=== PATIENT | female | born 1960 | race Caucasian/White ===

== ENCOUNTER 2016-10-26 05:06 | Inpatient (IN) | payer OTHER ==
[2016-10-26 05:18] VITALS: BMI 25.6
--- NOTE | 2016-10-26 05:19 | PDOC ---
History of Present Illness - General Chief Complaint: Altered Mental Status Stated Complaint: WEAKNESS Time Seen by Provider: 10/26/16 05:18 History Source: Patient - History of Present Illness Initial Comments: 10/26/16 05:40 Chief complaint: Altered mental status Patient is a 56-year-old female with a history of diabetes, coronary artery disease, hypertension who states she was fine yesterday, is not sure what happened and found her and paramedics standing over her. EMS states that the states that she altered mental status and he called the ambulance. Patient's only complaint now she is a little tired. No chest pain or shortness of breath. No history of seizures. Blood sugar by EMS was about 170 GENERAL/CONSTITUTIONAL: No fever, +weakness. No: dizziness HEAD, EYES, EARS, NOSE AND THROAT: No change in vision. No ear pain or discharge. No sore throat. CARDIOVASCULAR: No chest pain RESPIRATORY: No shortness of breath or cough GASTROINTESTINAL: No pain, nausea, vomiting, diarrhea or constipation GENITOURINARY: No dysuria MUSCULOSKELETAL: No neck or back pain SKIN: No rash NEUROLOGIC: No headache, vertigo, loss of consciousness, or loss of sensation. GENERAL: The patient is awake, alert, and fully oriented, in no acute distress. HEAD: Normal with no signs of trauma. EYES: Pupils equal, round and reactive to light, sclera anicteric, conjunctiva clear. EOMs intact ENT: pharynx: no erythema, no exudate, uvula midline NECK: supple CHEST: clear, nontender, rr ABD: soft, nontender EXTREMITIES: Normal range of motion, no edema. Strength 5 out of 5 upper and lower extremities bilaterally, neurovascular intact NEUROLOGICAL: Normal speech, cranial nerves II through XII grossly intact SKIN: Warm, Dry Past History - Past Medical History Allergies/Adverse Reactions: Allergies Allergy/AdvReac Type Severity Reaction Status Date / Time No Known Allergies Allergy Verified 10/26/16 05:14 Home Medications: Ambulatory Orders Amlodipine Besylate [Norvasc -] 0 mg PO DAILY 10/26/16 Aspirin [ASA -] 81 mg PO DAILY 10/26/16 Gemfibrozil 0 gm PO ASDIR 10/26/16 Insulin (Novolog) [Novolog] 0 units SQ ASDIR 10/26/16 Losartan Potassium 0 mg PO DAILY 10/26/16 Metoprolol Tartrate 0 mg PO ASDIR 10/26/16 Diabetes: Yes HTN: Yes - Psycho/Social/Smoking Cessation Hx Suicidal Ideation: No Smoking History: Never smoked Hx Alcohol Use: No Drug/Substance Use Hx: No *Physical Exam - Vital Signs Last Vital Signs Temp Pulse Resp BP Pulse Ox 97.9 F 70 18 118/64 94 L 10/26/16 05:14 10/26/16 05:14 10/26/16 05:14 10/26/16 05:14 10/26/16 05:14 Heart Score/ECG Review - ECG Intrepretation Rhythm: Regular Rhythm Comment:: 10/26/16 05:48 Normal sinus rhythm, nonspecific ST abnormality, at 88 ED Treatment Course - LABORATORY CBC & Chemistry Diagram: 10/26/16 05:30 10/26/16 05:30 Medical Decision Making - Medical Decision Making 10/26/16 05:46 56-year-old female with a history of hypertension, CAD, diabetes who had some kind of episode at home where she was altered and does not know what happened. Given her history, we'll get labs, head CT, EKG patient will need to stay to be monitored, observation even if workup is negative 10/26/16 06:[address]: no acute findings chest xray: no infiltrate or failure *DC/Admit/Observation/Transfer Diagnosis at time of Disposition: Altered mental status Qualifiers: Altered mental status type: unspecified Qualified Code(s): R41.82 - Altered mental status, unspecified
--- NOTE | 2016-10-26 05:29 | PDOC ---
[id number] 96 10/26/16 05:14 10/26/16 05:14 10/26/16 05:14 10/26/16 05:14 10/26/16 05:14 ED Treatment Course - LABORATORY CBC & Chemistry Diagram: 10/26/16 05:30 10/26/16 05:30 Medical Decision Making - Medical Decision Making 10/26/16 05:28 agree with care from LYNN Waterman *DC/Admit/Observation/Transfer Diagnosis at time of Disposition: Altered mental status
[2016-10-26 05:43] LABS: MCHC 35.5 g/dl (32.0-36.0); MEAN CELL VOLUME 87.2 fl (80-96); MEAN PLT VOLUME 8.4 fl (7.5-11.1); PLATELET COUNT 328 K/MM3 (134-434); RDW 12.4 % (11.6-15.6); WHITE BLOOD COUNT 8.5 K/mm3 (4.0-10.0)
[2016-10-26 06:23] LABS: ALBUMIN 4.2 g/dl (3.4-5.0); ANION GAP 12 (8-16); BILIRUBIN,TOTAL 0.2 mg/dL (0.2-1.0); CALCIUM 8.6 mg/dL (8.5-10.1); CO2 24 mmol/L (21-32); GLUCOSE,RANDOM 187 mg/dL (74-106); SGPT/ALT 32 U/L (12-78); TOT PROT 8.1 g/dl (6.4-8.2)
[2016-10-26 06:26] LABS: ALK PHOS 72 U/L (45-117); TROPONIN I < 0.02 ng/ml (0.00-0.05)
[2016-10-26 06:35] LABS: SGOT/AST 21 U/L (15-37)
--- NOTE | 2016-10-26 08:25 | PDOC ---
*Physical Exam - Vital Signs Last Vital Signs Temp Pulse Resp BP Pulse Ox 97.7 F 92 H 15 110/72 97 10/26/16 07:31 10/26/16 07:31 10/26/16 07:31 10/26/16 07:31 10/26/16 07:31 ED Treatment Course - LABORATORY CBC & Chemistry Diagram: 10/26/16 05:30 10/26/16 05:30 - ADDITIONAL ORDERS Additional order review: Laboratory Results 10/26/16 05:30 Sodium 137 Potassium 4.0 Chloride 101 Carbon Dioxide 24 Anion Gap 12 BUN 23 H Creatinine 1.0 Creat Clearance w eGFR 57.35 Random Glucose 187 H Calcium 8.6 Total Bilirubin 0.2 AST 21 ALT 32 Alkaline Phosphatase 72 Creatine Kinase 119 Troponin I < 0.02 Total Protein 8.1 Albumin 4.2 10/26/16 05:30 RBC 4.09 MCV 87.2 MCHC 35.5 RDW 12.4 MPV 8.4 Neutrophils % 34.0 L Lymphocytes % 57.0 H Monocytes % 7.0 Eosinophils % 2.0 Medical Decision Making - Medical Decision Making 10/26/16 08:02 Patient received in sign out from LYNN Waterman. Patient with a period of confusion last night as per and unable to recall the events leading up to EMS at her bedside. Patient currently asymptomatic but does have history of diabetes and had a normal BGM on scene. Patient ordered for head CT which was negative and labs which were otherwise normal. Awaiting callback from patient's PCP to discuss disposition of observation and neuro consultation Selected Entries 10/26/16 07:31 Temperature 97.7 F Pulse Rate [ 92 H Apical] Respiratory 15 Rate Blood Pressure 110/72 [Left Arm] O2 Sat by Pulse 97 Oximetry (%) 10/26/16 08:[address] Ziegler who states to consult cardiology and neuro and admit to telemetry observation. 10/26/16 09:[address] Chung and will consult on pt. Call also placed to Dr. Latham. Dr. Ziegler here for consultation and states pt should be upgraded to inpatient as she feels this may be cardiac event since while checking her pulse she felt to be irregular and with occasional pauses. *DC/Admit/Observation/Transfer Diagnosis at time of Disposition: Altered mental status Qualifiers: Altered mental status type: unspecified Qualified Code(s): R41.82 - Altered mental status, unspecified - Discharge Dispostion Admit: Yes
[2016-10-26 08:49] LABS: URINE APPEARANCE CLEAR; URINE BILIRUBIN NEGATIVE (NEGATIVE); URINE BLOOD NEGATIVE (NEGATIVE); URINE COLOR STRAW; URINE GLUCOSE (UA) NEGATIVE (NEGATIVE); URINE KETONE NEGATIVE (NEGATIVE); URINE LEUK ESTERASE NEGATIVE (NEGATIVE); URINE NITRITE NEGATIVE (NEGATIVE); URINE UROBILINOGEN NEGATIVE E.U./dl (0.2-1.0)
[2016-10-26 08:57] LABS: URINE PROTEIN 1+ (NEGATIVE)
[2016-10-26 08:59] LABS: URINE MUCUS RARE; URINE WBC <1 /hpf (3-5)
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
--- NOTE | 2016-10-26 14:14 | EKG ---
Test Reason : Blood Pressure : / mmHG Vent. Rate : 088 BPM Atrial Rate : 088 BPM P-R Int : 164 ms QRS Dur : 088 ms QT Int : 382 ms P-R-T Axes : 062 028 048 degrees QTc Int : 462 ms NORMAL SINUS RHYTHM NONSPECIFIC ST ABNORMALITY ABNORMAL ECG NO PREVIOUS ECGS AVAILABLE Confirmed by HELEN REYNA, MAYI ([id number]) on 10/26/2016 2:13:56 PM Referred By: Confirmed By:MAYI CERVANTES MD
[2016-10-26] MEDS ORDERED: HEPARIN NA (PORCINE) 5,000 UNITS/ML 1ML VIAL SQ ONE (18:11)
--- NOTE | 2016-10-26 19:55 | CON.NEURO ---
[id number]:: sudden unresponsiveness, altered mental status, confusion , amnesia - History of Present Illness History of Present Illness: 56-year-old female with a pmh. of diabetes, coronary artery disease, hypertension who states she was fine yesterday was admitted for sudden altered mental status, unresponsiveness. Last night she took her DM meds and went to sleep . Her usually is coming late from his job and when he checked on her she was not arousable for few minutes . He called the ambulance. Till EMS arrived however the patient woke up, confused and asking repeatedly " what happened". Today she is back to normal and she has no memory of the event. . Patient's only complaint now she is a little tired. No chest pain or shortness of breath. No history of seizures. Blood sugar by EMS was about 170 - Past Medical History Cardio/Vascular: Yes: HTN, Hyperlipdemia, Mitral Stenosis Endocrine: Yes: Diabetes Mellitus - Alcohol/Substance Use Hx Alcohol Use: No - Smoking History Smoking history: Never smoked Home Medications - Allergies Allergies/Adverse Reactions: Allergies Allergy/AdvReac Type Severity Reaction Status Date / Time No Known Allergies Allergy Verified 10/26/16 05:14 - Home Medications Home Medications: Ambulatory Orders Amlodipine Besylate [Norvasc -] 0 mg PO DAILY 10/26/16 Aspirin [ASA -] 81 mg PO DAILY 10/26/16 Gemfibrozil 0 gm PO ASDIR 10/26/16 Insulin (Novolog) [Novolog] 0 units SQ ASDIR 10/26/16 Losartan Potassium 0 mg PO DAILY 10/26/16 Metoprolol Tartrate 0 mg PO ASDIR 10/26/16 Review of Systems - Review of Systems Constitutional: reports: No Symptoms, Malaise Eyes: reports: No Symptoms HENT: reports: No Symptoms Neck: reports: No Symptoms Cardiovascular: reports: No Symptoms Respiratory: reports: No Symptoms Gastrointestinal: reports: No Symptoms Genitourinary: reports: No Symptoms Breasts: reports: No Symptoms Reported Musculoskeletal: reports: No Symptoms Integumentary: reports: No Symptoms Neurological: reports: No Symptoms Endocrine: reports: No Symptoms Hematology/Lymphatic: reports: No Symptoms Psychiatric: reports: No Symptoms Physical Exam-Neuro Vital Signs: Vital Signs Temperature 98.0 F 10/26/16 14:14 Pulse Rate 98 H 10/26/16 14:14 Respiratory Rate 16 10/26/16 14:14 Blood Pressure 131/68 10/26/16 14:14 O2 Sat by Pulse Oximetry (%) 97 10/26/16 12:40 Constitutional: Yes: No Distress, Calm, Anxious Neck: Yes: Supple, Trachea Midline Cardiovascular: Yes: WNL, Regular Rate and Rhythm, S1, S2 Respiratory: Yes: WNL, Regular, CTA Bilaterally Gastrointestinal: Yes: WNL, Normal Bowel Sounds, Soft Renal/: Yes: WNL Musculoskeletal: Yes: WNL Edema: No Psychiatric: Yes: Alert, Oriented - Neuro Exam Level Of Consciousness: Yes: Alert, Oriented to Person, Oriented to Place, Oriented to Time Eyes: Yes: PERRLA Speech: WNL Dominant Hand: Right Cranial Nerves II-XII Intact: Yes Gag: Present DTR's: 1+ Left Bicep, 1+ Right Bicep, 1+ Left Tricep, 1+ Right Tricep, 1+ Left Brachioradialis, 1+ Right Brachioradialis, 1+ Left Achilles, 1+ Right Achilles Babinski: Absent Response to light touch: Normal Response to pain prick: Normal Response to temperature: Normal Response to vibration: Normal Coordination: Normal: Finger to Nose, Heel to Vital Motor Strength: 5/5: Left Arm, Right Arm, Left Leg, Right Leg Gait: Deferred Imaging - Results Cat Scan: Report Reviewed, Image Reviewed Problem List - Problems (1) Altered mental status Code(s): R41.82 - ALTERED MENTAL STATUS, UNSPECIFIED Qualifiers: Altered mental status type: unspecified Qualified Code(s): R41.82 - Altered mental status, unspecified (2) Transient global amnesia Code(s): G45.4 - TRANSIENT GLOBAL AMNESIA (3) Seizure Code(s): R56.9 - UNSPECIFIED CONVULSIONS Assessment/Plan 56-year-old female with a pmh. of diabetes, coronary artery disease, hypertension who states she was fine yesterday was admitted for sudden altered mental status, unresponsiveness. Last night she took her DM meds and went to sleep . Her usually is coming late from his job and when he checked on her she was not arousable for few minutes . He called the ambulance. Till EMS arrived however the patient woke up, confused and asking repeatedly " what happened". Today she is back to normal and she has no memory of the event. . No history of seizures. Blood sugar by EMS was about 170 Impression: AMS , metabolic encephslopathy vs seizure vs TIA Plan: - TIA work up : MRI brain, echo, doppler, Holter 24 h. - check for UTI. - DVT prophylaxis - EEG to rule out seizures. -will follow
[2016-10-26] MEDS: METOPROLOL TARTRATE 25 MG TABLET (FP) PO SCH (21:45)
[2016-10-26] MEDS ORDERED: ACETAMINOPHEN 325 MG TABLET (FP) PO PRN (22:03)
[2016-10-27 07:25] LABS: CREATININE 0.8 mg/dL (0.55-1.02)
[2016-10-27 08:26] LABS: BASOPHIL 0.8 % (0-2.0); EOSINOPHIL 3.9 % (0-4.5); MCH 31.5 pg (25.7-33.7); MEAN CELL VOLUME 85.2 fl (80-96); MEAN PLT VOLUME 8.9 fl (7.5-11.1); NEUTROPHILS 28.3 % (42.8-82.8); RDW 12.2 % (11.6-15.6); WHITE BLOOD COUNT 8.4 K/mm3 (4.0-10.0)
[2016-10-27] MEDS: amLODIPine BESYLATE 10 MG TABLET (FP) PO SCH (09:18)
[2016-10-27] MEDS: ASPIRIN 325 MG TABLET PO SCH (09:18)
[2016-10-27] MEDS: METOPROLOL TARTRATE 25 MG TABLET (FP) PO SCH ×2 (09:18→20:59)
[2016-10-27 09:46] LABS: PLATELET COUNT 298 K/MM3 (134-434)
--- NOTE | 2016-10-27 10:47 | EKG ---
Test Reason : Blood Pressure : / mmHG Vent. Rate : 090 BPM Atrial Rate : 090 BPM P-R Int : 144 ms QRS Dur : 088 ms QT Int : 382 ms P-R-T Axes : 061 045 031 degrees QTc Int : 467 ms NORMAL SINUS RHYTHM MINIMAL VOLTAGE CRITERIA FOR LVH, MAY BE NORMAL VARIANT NONSPECIFIC ST ABNORMALITY ABNORMAL ECG WHEN COMPARED WITH ECG OF 26-OCT-2016 05:41, NO SIGNIFICANT CHANGE WAS FOUND Confirmed by PAOLO FINCH MD ([id number]) on 10/27/2016 10:47:16 AM Referred By: SAMIA FRENCH Confirmed By:PAOLO FINCH MD
--- NOTE | 2016-10-27 11:11 | HP ---
Admitting History and Physical - Admission Chief Complaint: I cant remeber History of Present Illness: Patient is a 56-year-old female with a history of diabetes, coronary artery disease, hypertension who states she was fine yesterday, is not sure what happened and found her and paramedics standing over her. EMS states that the states that she altered mental status and he called the ambulance. Patient's only complaint now she is a little tired. No chest pain or shortness of breath. No history of seizures. Blood sugar by EMS was about 170 History Source: Patient, Family Member, Medical Record Limitations to Obtaining History: No Limitations, Other (unable to remeber event s) - Past Medical History Cardiovascular: Yes: HTN, Hyperlipdemia, Mitral Stenosis Endocrine: Yes: Diabetes Mellitus - Smoking History Smoking history: Never smoked - Alcohol/Substance Use Hx Alcohol Use: No - Social History Usual Living Arrangement: Yes: With Spouse Home Medications - Allergies Allergies/Adverse Reactions: Allergies Allergy/AdvReac Type Severity Reaction Status Date / Time No Known Allergies Allergy Verified 10/26/16 05:14 - Home Medications Home Medications: Ambulatory Orders Amlodipine Besylate [Norvasc -] 0 mg PO DAILY 10/26/16 Aspirin [ASA -] 81 mg PO DAILY 10/26/16 Gemfibrozil 0 gm PO ASDIR 10/26/16 Insulin (Novolog) [Novolog] 0 units SQ ASDIR 10/26/16 Losartan Potassium 0 mg PO DAILY 10/26/16 Metoprolol Tartrate 0 mg PO ASDIR 10/26/16 Review of Systems - Review of Systems Constitutional: reports: No Symptoms Eyes: reports: No Symptoms HENT: reports: No Symptoms Neck: reports: No Symptoms Cardiovascular: reports: No Symptoms Respiratory: reports: No Symptoms Gastrointestinal: reports: No Symptoms Genitourinary: reports: No Symptoms Breasts: reports: No Symptoms Reported Musculoskeletal: reports: No Symptoms Integumentary: reports: No Symptoms Neurological: reports: Confusion Endocrine: reports: No Symptoms Hematology/Lymphatic: reports: No Symptoms Psychiatric: reports: No Symptoms Physical Examination Vital Signs: Vital Signs Temperature 98.2 F 10/27/16 10:00 Pulse Rate 89 10/27/16 10:00 Respiratory Rate 20 10/27/16 10:00 Blood Pressure 118/79 10/27/16 10:00 O2 Sat by Pulse Oximetry (%) 94 L 10/27/16 09:00 Constitutional: Yes: Well Nourished, No Distress Eyes: Yes: WNL, Conjunctiva Clear, EOM Intact HENT: Yes: WNL, Atraumatic, Normocephalic Neck: Yes: WNL, Supple, Trachea Midline Cardiovascular: Yes: WNL, Regular Rate and Rhythm Respiratory: Yes: WNL, Regular Gastrointestinal: Yes: WNL, Normal Bowel Sounds, Soft Renal/: Yes: WNL Breast(s): Yes: WNL Musculoskeletal: Yes: WNL Extremities: Yes: WNL Edema: No Peripheral Pulses: Left Radial: 2+, Right Radial: 2+, Left Doralis Pedis: 2+, Right Dorsalis Pedis: 2+, Left Femoral: 2+, Right Femoral: 2+ Integumentary: Yes: WNL Neurological: Yes: WNL, Alert, Oriented, Cran Nerves II-XII Intact ...Motor Strength: WNL Psychiatric: Yes: WNL Labs: CBC, BMP 10/27/16 06:00 10/27/16 06:00 Problem List - Problems (1) Altered mental status Code(s): R41.82 - ALTERED MENTAL STATUS, UNSPECIFIED Qualifiers: Altered mental status type: unspecified Qualified Code(s): R41.82 - Altered mental status, unspecified (2) Transient global amnesia Code(s): G45.4 - TRANSIENT GLOBAL AMNESIA (3) Diabetes mellitus Code(s): E11.9 - TYPE 2 DIABETES MELLITUS WITHOUT COMPLICATIONS (4) CAD (coronary atherosclerotic disease) Code(s): I25.10 - ATHSCL HEART DISEASE OF [place] CORONARY ARTERY W/O ANG PCTRS (5) HTN (hypertension) Code(s): I10 - ESSENTIAL (PRIMARY) HYPERTENSION
--- NOTE | 2016-10-27 11:22 | PN ---
Progress Note (short form) - Note Progress Note: sitting in bed -- ar baseline "what happened to me ?" cannot remember events that prompted Hospitalization wants to go home -- feeling well Vital Signs Period Temp Pulse Resp BP Sys/[place] Pulse Ox Last 24 Hr 97.4 F-98.2 F 72-99 16-20 118-131/68-92 94-97 neck supple heart reg lungs clear bilat abd soft non tender ext no edema / no calf tenderness CBC, BMP 10/27/16 06:00 10/27/16 06:00 Active Medications Acetaminophen (Tylenol -) 650 mg PO Q6H PRN PRN Reason: FEVER OR PAIN Amlodipine Besylate (Norvasc -) 10 mg PO DAILY [facility] Last Admin: 10/27/16 09:18 Dose: 10 mg Aspirin (Asa -) 325 mg PO DAILY [facility] Last Admin: 10/27/16 09:18 Dose: 325 mg Metoprolol Tartrate (Lopressor -) 25 mg PO BID [facility] Last Admin: 10/27/16 09:18 Dose: 25 mg needs to resume insulin -- however considering hypoglycemic even will observe and resume at lower dose Problem List - Problems (1) Altered mental status Code(s): R41.82 - ALTERED MENTAL STATUS, UNSPECIFIED Qualifiers: Altered mental status type: unspecified Qualified Code(s): R41.82 - Altered mental status, unspecified (2) Transient global amnesia Code(s): G45.4 - TRANSIENT GLOBAL AMNESIA (3) Diabetes mellitus Code(s): E11.9 - TYPE 2 DIABETES MELLITUS WITHOUT COMPLICATIONS (4) CAD (coronary atherosclerotic disease) Code(s): I25.10 - ATHSCL HEART DISEASE OF [place] CORONARY ARTERY W/O ANG PCTRS (5) HTN (hypertension) Code(s): I10 - ESSENTIAL (PRIMARY) HYPERTENSION
--- NOTE | 2016-10-27 14:47 | PN ---
Progress Note, Physician History of Present Illness: 56-year-old female with a pmh. of diabetes, coronary artery disease, hypertension who states she was fine yesterday was admitted for sudden altered mental status, unresponsiveness. Last night she took her DM meds and went to sleep . Her usually is coming late from his job and when he checked on her she was not arousable for few minutes . He called the ambulance. Till EMS arrived however the patient woke up, confused and asking repeatedly " what happened". Today she is back to normal and she has no memory of the event. . Patient's only complaint now she is a little tired. No chest pain or shortness of breath. No history of seizures. Blood sugar by EMS was about 170 - Current Medication List Current Medications: Active Medications Acetaminophen (Tylenol -) 650 mg PO Q6H PRN PRN Reason: FEVER OR PAIN Amlodipine Besylate (Norvasc -) 10 mg PO DAILY [facility] Last Admin: 10/27/16 09:18 Dose: 10 mg Aspirin (Asa -) 325 mg PO DAILY [facility] Last Admin: 10/27/16 09:18 Dose: 325 mg Metoprolol Tartrate (Lopressor -) 25 mg PO BID [facility] Last Admin: 10/27/16 09:18 Dose: 25 mg - Objective Vital Signs: Vital Signs Temperature 98.2 F 10/27/16 10:00 Pulse Rate 89 10/27/16 10:00 Respiratory Rate 20 10/27/16 10:00 Blood Pressure 118/79 10/27/16 10:00 O2 Sat by Pulse Oximetry (%) 94 L 10/27/16 09:00 Constitutional: Yes: No Distress, Calm Eyes: Yes: Conjunctiva Clear, EOM Intact HENT: Yes: Atraumatic, Normocephalic Neck: Yes: Supple, Trachea Midline Cardiovascular: Yes: Regular Rate and Rhythm, S1, S2 Respiratory: Yes: Regular, CTA Bilaterally Gastrointestinal: Yes: Normal Bowel Sounds, Soft Genitourinary: Yes: WNL Breast(s): Yes: WNL Musculoskeletal: Yes: WNL Extremities: Yes: WNL Edema: No Peripheral Pulses WNL: Yes Peripheral Pulses: Left Radial: 1+, Right Radial: 1+ Neurological: Yes: WNL, Alert, Oriented, Cran Nerves II-XII Intact ...Motor Strength: WNL Psychiatric: Yes: WNL, Alert, Oriented Labs: CBC, BMP 10/27/16 06:00 10/27/16 06:00 - ....Imaging Ultrasound: Pending, Report Reviewed, Image Reviewed MRI: Pending EKG: Report Reviewed, Image Reviewed Problem List - Problems (1) Altered mental status Code(s): R41.82 - ALTERED MENTAL STATUS, UNSPECIFIED Qualifiers: Altered mental status type: unspecified Qualified Code(s): R41.82 - Altered mental status, unspecified (2) Transient global amnesia Code(s): G45.4 - TRANSIENT GLOBAL AMNESIA (3) Seizure Code(s): R56.9 - UNSPECIFIED CONVULSIONS (4) Syncope Code(s): R55 - SYNCOPE AND COLLAPSE Assessment/Plan 56-year-old female with a pmh. of diabetes, coronary artery disease, hypertension, porcine valve mitral who states she was fine yesterday was admitted for sudden altered mental status, unresponsiveness. Last night she took her DM meds and went to sleep . Her usually is coming late from his job and when he checked on her she was not arousable for few minutes . He called the ambulance. Till EMS arrived however the patient woke up, confused and asking repeatedly " what happened". Today she is back to normal and she has no memory of the event. . No history of seizures. Blood sugar by EMS was about 170 Impression: AMS , metabolic encephalopathy vs seizure vs TIA vs.hypoglymic episode Plan: - TIA work up : MRI brain, echo, doppler, Holter 24 h. If echo, doppler, MRI brain are normal she can be discharged home. - check for UTI. - DVT prophylaxis - EEG is wnl. -will follow
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
[2016-10-27] MEDS ORDERED: INSULIN (NOVOLOG) ASPART 100 UNITS/ML 10ML VIAL ONE (20:56)
[2016-10-27] MEDS: INSULIN SLIDING SCALE (NOVOLOG) 1 VIAL SQ SCH (21:00)
[2016-10-28] MEDS ORDERED: INSULIN (NOVOLOG) ASPART 100 UNITS/ML 10ML VIAL ONE ×2 (06:05→12:31)
[2016-10-28] MEDS: INSULIN SLIDING SCALE (NOVOLOG) 1 VIAL SQ SCH ×2 (06:29→12:39)
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
[2016-10-28] MEDS: ASPIRIN 325 MG TABLET PO SCH (09:23)
[2016-10-28] MEDS: METOPROLOL TARTRATE 25 MG TABLET (FP) PO SCH (09:23)
[2016-10-28] MEDS: amLODIPine BESYLATE 10 MG TABLET (FP) PO SCH (09:23)
[2016-10-28 14:30] VITALS: BP 127/84; PULSE 85; TEMP 98.2
[2016-10-28] MEDS ORDERED: INSULIN SQ SCH (15:00)
--- NOTE | 2016-10-28 15:08 | DS ---
Physical Examination Vital Signs: Vital Signs Temperature 98.2 F 10/28/16 14:29 Pulse Rate 85 10/28/16 14:29 Respiratory Rate 16 10/28/16 14:29 Blood Pressure 127/84 10/28/16 14:29 O2 Sat by Pulse Oximetry (%) 97 10/28/16 09:00 Constitutional: Yes: Well Nourished, No Distress, Calm Eyes: Yes: WNL, Conjunctiva Clear, EOM Intact HENT: Yes: WNL, Atraumatic, Normocephalic Neck: Yes: WNL, Supple, Trachea Midline Cardiovascular: Yes: WNL, Regular Rate and Rhythm, Bradycardia Respiratory: Yes: WNL, Regular Gastrointestinal: Yes: WNL, Normal Bowel Sounds, Soft Renal/: Yes: WNL Breast(s): Yes: WNL Musculoskeletal: Yes: WNL Extremities: Yes: WNL Edema: No Peripheral Pulses WNL: Yes Peripheral Pulses: Left Radial: 2+, Right Radial: 2+, Left Doralis Pedis: 2+, Right Dorsalis Pedis: 2+, Left Femoral: 2+, Right Femoral: 2+ Integumentary: Yes: WNL Neurological: Yes: WNL, Alert, Oriented ...Motor Strength: WNL Psychiatric: Yes: WNL Labs: CBC, BMP 10/27/16 06:00 10/27/16 06:00 Discharge Summary Reason For Visit: ALTERED MENTAL STATUS Current Active Problems Altered mental status (Acute) CAD (coronary atherosclerotic disease) (Acute) Diabetes mellitus (Acute) HTN (hypertension) (Acute) Seizure (Acute) Syncope (Acute) Transient global amnesia (Acute) Condition: Good - Instructions Disposition: HOME - Home Medications Comprehensive Discharge Medication List: Ambulatory Orders Amlodipine Besylate [Norvasc -] 0 mg PO DAILY 10/26/16 Aspirin [ASA -] 81 mg PO DAILY 10/26/16 Gemfibrozil 0 gm PO [facility] 10/26/16 Insulin (Novolog) [Novolog] 0 units SQ [facility] 10/26/16 Losartan Potassium 0 mg PO DAILY 10/26/16 Metoprolol Tartrate 0 mg PO [facility] 10/26/16
[2016-10-28] MEDS ORDERED: METOPROLOL TARTRATE 25 MG PO SCH (22:00)
[2016-10-28] MEDS ORDERED: GEMFIBROZIL PO SCH (22:00)
[2016-10-29] MEDS ORDERED: PATIENT'S OWN MEDICATION (NON-FORMULARY) (Amlodipine Besylate [Norvasc -] 10 MG) PO SCH (10:00)
[2016-10-29] MEDS ORDERED: PATIENT'S OWN MEDICATION (NON-FORMULARY) (Losartan Potassium [Losartan Potassium] 50 MG) PO SCH (10:00)
--- NOTE | 2016-10-29 21:20 | EKG ---
Test Reason : Blood Pressure : / mmHG Vent. Rate : 088 BPM Atrial Rate : 088 BPM P-R Int : 142 ms QRS Dur : 090 ms QT Int : 390 ms P-R-T Axes : 051 041 039 degrees QTc Int : 471 ms NORMAL SINUS RHYTHM MINIMAL VOLTAGE CRITERIA FOR LVH, MAY BE NORMAL VARIANT BORDERLINE ECG WHEN COMPARED WITH ECG OF 27-OCT-2016 09:18, NO SIGNIFICANT CHANGE WAS FOUND Confirmed by BLADIMIR REYNA, BERNA ([id number]) on 10/29/2016 9:20:11 PM Referred By: SAMIA FRENCH Confirmed By:BERNA GARRISON MD
== END 2016-10-28 15:30 | disposition home or self-care (01) | DRG 861 ==
LOC: JER 05:06 → JERBED 08:42 → OBSVTOIN 08:42 → J4S 10:03
PROVIDERS: ADMIT Family Medicine; ATTEND Family Medicine
DX: R41.82 Altered mental status, unspecified (principal); I10 Essential (primary) hypertension; I25.10 Atherosclerotic heart disease of native coronary artery without angina pectoris; E11.9 Type 2 diabetes mellitus without complications; I05.0 Rheumatic mitral stenosis; G45.4 Transient global amnesia; R56.9 Unspecified convulsions; G93.41 Metabolic encephalopathy; Z95.2 Presence of prosthetic heart valve
CPT/HCPCS: 36415; 70450-TC; 71010-TC; 80048; 80053; 81003; 81015; 82550; 84484; 85025; 93005; 93010; 93306-TC; 93880-TC; 95816; 99285-25; J1644

== ENCOUNTER 2022-12-16 18:50 | Emergency (ER) | payer OTHER ==
[2022-12-16 18:57] VITALS: BP 114/71; PULSE 74; RESP 16; TEMP 98; BMI 22.6
[2022-12-16] MEDS ORDERED: ACETAMINOPHEN 500 MG TABLET (FP) ONE (20:48)
[2022-12-16] MEDS ORDERED: METHOCARBAMOL 500 MG TABLET ONE (20:57)
[2022-12-16] MEDS ORDERED: METHOCARBAMOL 500 MG TABLET PO ONE (21:01)
[2022-12-16] MEDS ORDERED: ACETAMINOPHEN 500 MG TABLET (FP) PO ONE (21:12)
== END 2022-12-16 23:50 | disposition home or self-care (01) ==
LOC: JERFT 18:50
DX: S16.1XXA Strain of muscle, fascia and tendon at neck level, initial encounter (principal); G44.209 Tension-type headache, unspecified, not intractable; M25.519 Pain in unspecified shoulder; V49.50XA Passenger injured in collision with unspecified motor vehicles in traffic accident, initial encounter
CPT/HCPCS: 70450-TC; 72125-TC; 99284-25

== ENCOUNTER 2023-03-07 14:52 | Inpatient (IN) | payer OTHER ==
[2023-03-07] MEDS ORDERED: SODIUM CHLORIDE 0.9% 500 ML INFUS.BAG IV ONE (16:10)
[2023-03-07 16:52] LABS: BASO % 0.7 % (0-2.0); EOS % 0.8 % (0-4.5); HEMATOCRIT 37.7 % (32.4-45.2); HEMOGLOBIN 13.6 GM/dL (10.7-15.3); LYMPH % 41.1 % (8-40); MCH 30.1 pg (25.7-33.7); MCHC 36.2 g/dl (32.0-36.0); MEAN CELL VOLUME 83.2 fl (80-96); MEAN PLT VOLUME 8.9 fl (7.5-11.1); MONO % 16.1 % (3.8-10.2); NEUT % 41.3 % (42.8-82.8); PLATELET COUNT 263 10^3/uL (134-434); RBC 4.53 M/mm3 (3.60-5.2); RDW 14.9 % (11.6-15.6)
[2023-03-07 17:15] LABS: CHLORIDE 82 mmol/L (98-107)
[2023-03-07 17:17] LABS: CALCIUM 8.4 mg/dL (8.5-10.1)
[2023-03-07 17:18] LABS: ALBUMIN 3.6 g/dl (3.4-5.0); CO2 32 mmol/L (21-32); GLUCOSE,RANDOM 375 mg/dL (74-106)
[2023-03-07 17:21] LABS: CREATININE 2.1 mg/dL (0.55-1.3)
[2023-03-07 17:43] LABS: VENOUS BASE EXCESS 3.4 mmol/L (-2-2); VENOUS O2 SATURATION 36.1 % (70-80); VENOUS PCO2 50.1 mmHg (38-52); VENOUS PH 7.386 (7.310-7.410)
[2023-03-07 18:05] LABS: ANION GAP -3 MMOL/L (8-16); POTASSIUM > 10.0 mmol/L (3.5-5.1); SODIUM 110 mmol/L (136-145); TOT PROT 10.4 g/dl (6.4-8.2)
[2023-03-07 19:13] LABS: CHLORIDE 91 mmol/L (98-107); SODIUM 133 mmol/L (136-145)
[2023-03-07 19:16] LABS: CO2 31 mmol/L (21-32); GLUCOSE,RANDOM 292 mg/dL (74-106)
[2023-03-07 19:21] LABS: ANION GAP 11 MMOL/L (8-16); BLOOD UREA NITROGEN 46.9 mg/dL (7-18); CALCIUM 8.7 mg/dL (8.5-10.1); POTASSIUM 2.8 mmol/L (3.5-5.1)
[2023-03-07] MEDS ORDERED: INSULIN (NOVOLOG) ASPART 100 UNITS/ML 10ML VIAL SQ ONE (19:25)
[2023-03-07] MEDS ORDERED: POTASSIUM CHLORIDE ORAL LIQUID 20 MEQ/15 ML PO ONE (19:26)
[2023-03-07] MEDS ORDERED: LACTATED RINGERS SOLUTION 1000 ML INFUS.BAG IV ONE (19:27)
[2023-03-07] MEDS ORDERED: KCL 10 MEQ IVPB 10 MEQ/100 ML INFUS.BAG IVPB ONE (19:37)
[2023-03-07] MEDS ORDERED: POTASSIUM CHLORIDE ORAL LIQUID 20 MEQ/15 ML ONE (19:37)
[2023-03-07] MEDS ORDERED: INSULIN (NOVOLOG) ASPART 100 UNITS/ML 10ML VIAL ONE (19:39)
[2023-03-07 19:41] LABS: MAGNESIUM 2.8 mg/dL (1.8-2.4)
[2023-03-07] MEDS: KCL 10 MEQ IVPB 10 MEQ/100 ML INFUS.BAG IVPB SCH ×3 (20:08→21:47)
[2023-03-07 20:17] LABS: EPI CELLS 3 /uL (0-25.1); HYALINE CASTS 0 /uL (0-3.1); URINE APPEARANCE CLEAR; URINE BACTERIA 31 /uL (0-1359); URINE BILIRUBIN NEGATIVE (NEGATIVE); URINE COLOR YELLOW; URINE GLUCOSE (UA) 3+ (NEGATIVE); URINE KETONE NEGATIVE (NEGATIVE); URINE LEUK ESTERASE NEGATIVE (NEGATIVE); URINE NITRITE NEGATIVE (NEGATIVE); URINE PROTEIN TRACE (NEGATIVE); URINE RBC 0 /uL (0-23.9); URINE UROBILINOGEN 0.2 mg/dL (0.2-1.0); URINE WBC 1 /uL (0-25.8)
[2023-03-07] MEDS ORDERED: KCL 10 MEQ IVPB 20 MEQ/200 ML INFUS.BAG IVPB ONE (20:41)
[2023-03-07] MEDS ORDERED: POTASSIUM CHLORIDE TABS 20 MEQ TABLET.ER (FP) PO ONE ×2 (22:09→22:39)
[2023-03-07] MEDS ORDERED: HEPARIN NA (PORCINE) 5,000 UNITS/ML 1ML VIAL ONE (22:09)
[2023-03-07] MEDS ORDERED: LACTATED RINGERS SOLUTION 1,000 ML/1,000 ML INFUS.BAG IV SCH ×2 (22:30→22:35)
[2023-03-07] MEDS: HEPARIN NA (PORCINE) 5,000 UNITS/ML 1ML VIAL SQ SCH (22:46)
[2023-03-07 22:47] LABS: CREATININE, URINE RANDOM < 13.0 mg/dL (30-150)
[2023-03-07 23:34] LABS: CALCIUM 9.5 mg/dL (8.5-10.1)
[2023-03-07 23:35] LABS: BLOOD UREA NITROGEN 39.2 mg/dL (7-18); MAGNESIUM 2.5 mg/dL (1.8-2.4)
[2023-03-07 23:38] LABS: CREATININE 1.7 mg/dL (0.55-1.3)
[2023-03-08] MEDS: KCL 10 MEQ IVPB 10 MEQ/100 ML INFUS.BAG IVPB SCH ×4 (00:31→23:16)
[2023-03-08] MEDS ORDERED: SODIUM CHLORIDE 0.45% 1,000 ML with POTASSIUM CHLORIDE 40 MEQ IV SCH (01:00)
[2023-03-08] MEDS: INSULIN SLIDING SCALE (NOVOLOG) 1 VIAL SQ SCH ×4 (06:20→21:59)
[2023-03-08] MEDS: HEPARIN NA (PORCINE) 5,000 UNITS/ML 1ML VIAL SQ SCH ×3 (06:47→22:01)
[2023-03-08] MEDS ORDERED: PATIENT'S OWN MEDICATION (NON-FORMULARY) (Insulin Glargine,Hum.Rec.Anlog [Insulin Glargine SQ SCH (07:00)
[2023-03-08 07:45] LABS: HEMATOCRIT 34.5 % (32.4-45.2); MCHC 34.7 g/dl (32.0-36.0); MEAN CELL VOLUME 83.7 fl (80-96); MEAN PLT VOLUME 9.1 fl (7.5-11.1); PLATELET COUNT 231 10^3/uL (134-434); RBC 4.12 M/mm3 (3.60-5.2); RDW 13.9 % (11.6-15.6)
[2023-03-08 08:01] LABS: POTASSIUM 3.1 mmol/L (3.5-5.1)
[2023-03-08 08:12] LABS: ALBUMIN 3.7 g/dl (3.4-5.0); BLOOD UREA NITROGEN 32.3 mg/dL (7-18); MAGNESIUM 2.4 mg/dL (1.8-2.4)
[2023-03-08 08:14] LABS: CALCIUM 9.7 mg/dL (8.5-10.1)
[2023-03-08 08:15] LABS: CREATININE 1.7 mg/dL (0.55-1.3)
[2023-03-08] MEDS ORDERED: SODIUM CHLORIDE 1,000 ML with POTASSIUM CHLORIDE 40 MEQ IV SCH (08:15)
[2023-03-08 08:23] LABS: PHOSPHOROUS 2.9 mg/dL (2.5-4.9)
[2023-03-08 08:26] LABS: BILIRUBIN,TOTAL 0.5 mg/dL (0.2-1)
[2023-03-08 08:34] LABS: ANISOCYTOSIS 0; HELMET CELLS 0; HOWELL-JOLLY BODIES 0; MACROCYTOSIS 0; OVALOCYTE 0; ROULEAU 0; SICKELED CELLS 0; TARGET CELLS 0; TEAR DROP CELLS 0; TOXIC GRANULATION 0
[2023-03-08] MEDS: PANTOPRAZOLE 40 MG TABLET PO SCH (09:59)
[2023-03-08] MEDS ORDERED: amLODIPine BESYLATE 5 MG TABLET (FP) PO SCH (10:00)
[2023-03-08] MEDS ORDERED: GLYCERIN 1 RECTAL SUPPOSITORY, ADULT RC SCH (10:30)
[2023-03-08] MEDS ORDERED: POTASSIUM CHLORIDE 40 MEQ in SODIUM CHLORIDE 1,000 ML IV SCH (11:00)
[2023-03-08] MEDS ORDERED: INSULIN (NOVOLOG) ASPART 100 UNITS/ML 10ML VIAL ONE (11:33)
[2023-03-08 15:23] VITALS: BMI 21.5
[2023-03-08] MEDS ORDERED: SODIUM CHLORIDE 0.45%/POT 20 MEQ/1,000 ML INFUS.BAG IV SCH (15:30)
[2023-03-08] MEDS: LIPASE/PROTEASE/AMYLASE 36,000 UNIT CAPSULE PO SCH (17:50)
[2023-03-08 20:29] LABS: POTASSIUM 3.3 mmol/L (3.5-5.1)
[2023-03-08 20:30] LABS: BLOOD UREA NITROGEN 30.7 mg/dL (7-18); CALCIUM 8.8 mg/dL (8.5-10.1)
[2023-03-08] MEDS ORDERED: POTASSIUM CHLORIDE ORAL LIQUID 20 MEQ/15 ML PO ONE (22:54)
[2023-03-09] MEDS: KCL 10 MEQ IVPB 10 MEQ/100 ML INFUS.BAG IVPB SCH ×2 (02:22→02:53)
[2023-03-09] MEDS: HEPARIN NA (PORCINE) 5,000 UNITS/ML 1ML VIAL SQ SCH ×3 (05:02→21:09)
[2023-03-09] MEDS: INSULIN SLIDING SCALE (NOVOLOG) 1 VIAL SQ SCH ×4 (06:19→21:09)
[2023-03-09 07:54] LABS: HEMATOCRIT 34.6 % (32.4-45.2); HEMOGLOBIN 11.9 GM/dL (10.7-15.3); MCH 29.2 pg (25.7-33.7); MCHC 34.4 g/dl (32.0-36.0); MEAN CELL VOLUME 84.8 fl (80-96); PLATELET COUNT 207 10^3/uL (134-434); RBC 4.07 M/mm3 (3.60-5.2); WHITE BLOOD COUNT 8.5 K/mm3 (4.0-10.0)
[2023-03-09 08:11] LABS: POTASSIUM 3.4 mmol/L (3.5-5.1)
[2023-03-09 08:16] LABS: CALCIUM 9.3 mg/dL (8.5-10.1)
[2023-03-09 08:17] LABS: ALBUMIN 3.8 g/dl (3.4-5.0); BLOOD UREA NITROGEN 28.6 mg/dL (7-18); MAGNESIUM 2.1 mg/dL (1.8-2.4)
[2023-03-09 08:20] LABS: CREATININE 1.7 mg/dL (0.55-1.3); PHOSPHOROUS 2.2 mg/dL (2.5-4.9)
[2023-03-09 08:22] LABS: BILIRUBIN,TOTAL 0.5 mg/dL (0.2-1)
[2023-03-09 09:03] LABS: ANISOCYTOSIS 0; HELMET CELLS 0; HOWELL-JOLLY BODIES 0; MACROCYTOSIS 0; OVALOCYTE 0; ROULEAU 0; SICKELED CELLS 0; TARGET CELLS 0; TEAR DROP CELLS 0; TOXIC GRANULATION 0
[2023-03-09] MEDS ORDERED: SODIUM CHLORIDE 0.9%/KCL 20 MEQ/1,000 ML INFUS.BAG IV SCH (09:45)
[2023-03-09] MEDS: LIPASE/PROTEASE/AMYLASE 36,000 UNIT CAPSULE PO SCH ×3 (09:47→17:45)
[2023-03-09] MEDS: PANTOPRAZOLE 40 MG TABLET PO SCH (09:48)
[2023-03-09] MEDS: amLODIPine BESYLATE 2.5 MG TABLET (FP) PO SCH (09:48)
[2023-03-09] MEDS ORDERED: INSULIN (NOVOLOG) ASPART 100 UNITS/ML 10ML VIAL ONE ×2 (17:46→21:02)
[2023-03-09 19:58] LABS: POTASSIUM 3.6 mmol/L (3.5-5.1)
[2023-03-09 19:59] LABS: CALCIUM 9.2 mg/dL (8.5-10.1)
[2023-03-09 20:00] LABS: ALBUMIN 3.7 g/dl (3.4-5.0); BLOOD UREA NITROGEN 25.7 mg/dL (7-18)
[2023-03-09 20:03] LABS: CREATININE 1.9 mg/dL (0.55-1.3)
[2023-03-09 20:04] LABS: BILIRUBIN,TOTAL 0.3 mg/dL (0.2-1); TOT PROT 7.1 g/dl (6.4-8.2)
[2023-03-10] MEDS ORDERED: INSULIN (NOVOLOG) ASPART 100 UNITS/ML 10ML VIAL ONE ×2 (06:34→21:34)
[2023-03-10] MEDS: HEPARIN NA (PORCINE) 5,000 UNITS/ML 1ML VIAL SQ SCH ×3 (06:42→21:31)
[2023-03-10] MEDS: INSULIN (LEVEMIR) 100 UNITS/ML UNITS SQ SCH (06:42)
[2023-03-10] MEDS: INSULIN (NOVOLOG) ASPART 100 UNITS/ML 10ML VIAL SQ SCH ×3 (06:43→16:57)
[2023-03-10] MEDS: INSULIN SLIDING SCALE (NOVOLOG) 1 VIAL SQ SCH ×4 (06:43→21:34)
[2023-03-10] MEDS: LIPASE/PROTEASE/AMYLASE 36,000 UNIT CAPSULE PO SCH ×3 (08:18→17:00)
[2023-03-10 08:24] LABS: POTASSIUM 3.1 mmol/L (3.5-5.1)
[2023-03-10 08:31] LABS: CALCIUM 9.5 mg/dL (8.5-10.1)
[2023-03-10 08:32] LABS: CREATININE 1.6 mg/dL (0.55-1.3)
[2023-03-10 08:33] LABS: ALBUMIN 3.8 g/dl (3.4-5.0); BLOOD UREA NITROGEN 24.6 mg/dL (7-18)
[2023-03-10 08:36] LABS: PHOSPHOROUS 2.9 mg/dL (2.5-4.9)
[2023-03-10 08:37] LABS: BILIRUBIN,TOTAL 0.9 mg/dL (0.2-1)
[2023-03-10 08:53] LABS: HEMATOCRIT 34.6 % (32.4-45.2); HEMOGLOBIN 11.8 GM/dL (10.7-15.3); MCH 28.9 pg (25.7-33.7); MCHC 33.9 g/dl (32.0-36.0); MEAN CELL VOLUME 85.2 fl (80-96); MEAN PLT VOLUME 9.7 fl (7.5-11.1); PLATELET COUNT 222 10^3/uL (134-434); RBC 4.06 M/mm3 (3.60-5.2); RDW 14.4 % (11.6-15.6); WHITE BLOOD COUNT 6.8 K/mm3 (4.0-10.0)
[2023-03-10] MEDS: amLODIPine BESYLATE 2.5 MG TABLET (FP) PO SCH (10:40)
[2023-03-10] MEDS: PANTOPRAZOLE 40 MG TABLET PO SCH (10:40)
[2023-03-10] MEDS: OMEGA-3 ACID ETHYL ESTERS (FATTY-ACIDS) 1 GM CAPSULE (FP) PO SCH ×2 (10:40→21:30)
[2023-03-10 10:41] LABS: ANISOCYTOSIS 0; MACROCYTOSIS 0
[2023-03-10] MEDS ORDERED: POTASSIUM CHLORIDE 40 MEQ in SODIUM CHLORIDE 1,000 ML IV SCH (11:30)
[2023-03-10] MEDS: POTASSIUM CHLORIDE 40 MEQ in SODIUM CHLORIDE 1,000 ML IV SCH (21:30)
[2023-03-10] MEDS ORDERED: ATORVASTATIN CA 40 MG TABLET (FP) PO SCH (22:00)
[2023-03-11] MEDS ORDERED: INSULIN (NOVOLOG) ASPART 100 UNITS/ML 10ML VIAL ONE (06:23)
[2023-03-11] MEDS: INSULIN SLIDING SCALE (NOVOLOG) 1 VIAL SQ SCH ×2 (06:35→12:20)
[2023-03-11] MEDS: INSULIN (NOVOLOG) ASPART 100 UNITS/ML 10ML VIAL SQ SCH ×2 (06:35→12:21)
[2023-03-11] MEDS: INSULIN (LEVEMIR) 100 UNITS/ML UNITS SQ SCH (06:35)
[2023-03-11] MEDS: HEPARIN NA (PORCINE) 5,000 UNITS/ML 1ML VIAL SQ SCH (06:35)
[2023-03-11 07:34] LABS: BASO % 0.5 % (0-2.0); EOS % 4.5 % (0-4.5); HEMATOCRIT 33.1 % (32.4-45.2); HEMOGLOBIN 11.2 GM/dL (10.7-15.3); LYMPH % 54.8 % (8-40); MCH 29.2 pg (25.7-33.7); MEAN PLT VOLUME 9.1 fl (7.5-11.1); NEUT % 30.2 % (42.8-82.8); PLATELET COUNT 208 10^3/uL (134-434); RBC 3.85 M/mm3 (3.60-5.2); RDW 14.6 % (11.6-15.6); WHITE BLOOD COUNT 6.7 K/mm3 (4.0-10.0)
[2023-03-11 07:42] LABS: POTASSIUM 3.7 mmol/L (3.5-5.1)
[2023-03-11 07:45] LABS: ALBUMIN 3.6 g/dl (3.4-5.0); BLOOD UREA NITROGEN 23.6 mg/dL (7-18); CALCIUM 9.3 mg/dL (8.5-10.1)
[2023-03-11 07:46] LABS: MAGNESIUM 1.9 mg/dL (1.8-2.4)
[2023-03-11 07:48] LABS: CREATININE 1.7 mg/dL (0.55-1.3)
[2023-03-11 07:49] LABS: PHOSPHOROUS 2.8 mg/dL (2.5-4.9)
[2023-03-11 07:52] LABS: BILIRUBIN,TOTAL 0.4 mg/dL (0.2-1); TOT PROT 6.8 g/dl (6.4-8.2)
[2023-03-11] MEDS: LIPASE/PROTEASE/AMYLASE 36,000 UNIT CAPSULE PO SCH ×3 (08:23→12:22)
[2023-03-11 09:13] VITALS: BP 108/65; PULSE 77; RESP 18; TEMP 97.6
[2023-03-11] MEDS: OMEGA-3 ACID ETHYL ESTERS (FATTY-ACIDS) 1 GM CAPSULE (FP) PO SCH (10:12)
[2023-03-11] MEDS: POTASSIUM CHLORIDE 40 MEQ in SODIUM CHLORIDE 1,000 ML IV SCH (10:13)
[2023-03-11] MEDS: amLODIPine BESYLATE 2.5 MG TABLET (FP) PO SCH (10:13)
[2023-03-11] MEDS: PANTOPRAZOLE 40 MG TABLET PO SCH (10:13)
[2023-03-11] MEDS ORDERED: INSULIN (LEVEMIR) 100 UNITS/ML UNITS SQ ONE (11:07)
== END 2023-03-11 14:00 | disposition home or self-care (01) | DRG 420 ==
LOC: JER 14:52 → JERBED 20:00 → UNDOADMOB 20:00 → INTOOBSV 20:00 → JERBED 03-08 02:11 → J4W 03-08 02:11 → JERBED 03-08 13:42 → J4W 03-08 13:42 → OBSVTOIN 03-10 09:54
PROVIDERS: ADMIT Internal Medicine; ATTEND Internal Medicine
DX: E11.65 Type 2 diabetes mellitus with hyperglycemia (principal); N13.30 Unspecified hydronephrosis; I10 Essential (primary) hypertension; K86.89 Other specified diseases of pancreas; E78.5 Hyperlipidemia, unspecified; E87.6 Hypokalemia
CPT/HCPCS: 36415; 74176-TC; 76775-TC; 80048; 80053; 80061; 81003; 82010; 82436; 82570; 82803; 82962; 83036; 83735; 83935; 84100; 84133; 84300; 84478; 85025; 87086; 93005; 93010; 93306-TC; 99285-25; G0378; J1644; J3480

== ENCOUNTER 2023-05-28 11:54 | Emergency (ER) | payer OTHER ==
[2023-05-28 12:19] VITALS: BMI 21.9
[2023-05-28] MEDS ORDERED: SODIUM CHLORIDE 0.9% 500 ML INFUS.BAG IV ONE (13:05)
[2023-05-28] MEDS ORDERED: ACETAMINOPHEN 1000 MG/100 ML BAG IVPB ONE (13:22)
[2023-05-28] MEDS ORDERED: ACETAMINOPHEN INJECTION 100 ML IVPB ONE (14:12)
[2023-05-28 14:52] LABS: BASO % 0.3 % (0-2.0); HEMATOCRIT 39.5 % (32.4-45.2); HEMOGLOBIN 13.3 GM/dL (10.7-15.3); LYMPH % 13.1 % (8-40); MCHC 33.7 g/dl (32.0-36.0); NEUT % 66.6 % (42.8-82.8); PLATELET COUNT 221 10^3/uL (134-434); RDW 13.2 % (11.6-15.6); VENOUS BASE EXCESS -0.6 mmol/L (-2-2); VENOUS PCO2 44.7 mmHg (38-52); VENOUS PH 7.366 (7.310-7.410); WHITE BLOOD COUNT 7.9 K/mm3 (4.0-10.0)
[2023-05-28 14:53] LABS: PH,URINE 5.5 (5.0-8.0); URINE APPEARANCE CLEAR; URINE BILIRUBIN NEGATIVE (NEGATIVE); URINE COLOR YELLOW; URINE GLUCOSE (UA) 3+ (NEGATIVE); URINE KETONE TRACE (NEGATIVE); URINE LEUK ESTERASE NEGATIVE (NEGATIVE); URINE NITRITE NEGATIVE (NEGATIVE); URINE PROTEIN TRACE (NEGATIVE); URINE UROBILINOGEN 0.2 mg/dL (0.2-1.0)
[2023-05-28 15:01] LABS: INR 1.06 (0.83-1.09); PROTHROMBIN TIME (PATIENT) 12.3 SEC (9.7-13.0)
[2023-05-28 15:04] LABS: ACTIVATED PTT 29.9 SECONDS (25.2-36.5); POTASSIUM 5.1 mmol/L (3.5-5.1)
[2023-05-28 15:06] LABS: BLOOD UREA NITROGEN 20.8 mg/dL (7-18)
[2023-05-28 15:09] LABS: CREATININE 1.6 mg/dL (0.55-1.3)
[2023-05-28 15:11] LABS: BILIRUBIN,TOTAL 0.4 mg/dL (0.2-1); TOT PROT 8.1 g/dl (6.4-8.2)
[2023-05-28] MEDS ORDERED: SODIUM CHLORIDE 1,000 ML IV ONE (15:52)
[2023-05-28 18:37] VITALS: BP 126/81; PULSE 98; RESP 20; TEMP 99
== END 2023-05-28 18:37 | disposition home or self-care (01) ==
LOC: JER 11:54
PROC: 3E033NZ Introduction of Analgesics, Hypnotics, Sedatives into Peripheral Vein, Percutaneous Approach (ICD-10-PCS; principal; 2023-05-28)
PROC: 3E0337Z Introduction of Electrolytic and Water Balance Substance into Peripheral Vein, Percutaneous Approach (ICD-10-PCS; 2023-05-28)
DX: R50.9 Fever, unspecified (principal); M79.10 Myalgia, unspecified site; R51.9 Headache, unspecified; R53.83 Other fatigue; R53.81 Other malaise; R35.0 Frequency of micturition; U07.1 COVID-19
CPT/HCPCS: 0241U-QW; 36415; 71045-TC-FY; 80053; 81003; 82803; 82962; 83605; 84484; 85025; 85610; 85730; 86850; 86900; 86901; 87086; 93005; 93010; 99285-25